=== PATIENT | male | born 1965 | race Two or more races ===

== ENCOUNTER 2017-04-03 19:19 | Emergency (ER) | payer BC ==
[~2017-04-03] VITALS: Ht 177.8 cm; Wt 104.3 kg
--- NOTE | 2017-04-03 19:26 | NUR ---
PT AMBULATORY TO ER BED 05 C/O THROAT DIOSCOMFORT AND SOB THAT STARTED TODAY. DENIES FEVER GOWNED AND PLACED ON MONITOR. 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 AWAITING MD FARRELL.
--- NOTE | 2017-04-03 19:36 | NUR ---
DR KWON AT BEDSIDE FOR EVAL.
[2017-04-03] MEDS ORDERED: ALBUTEROL FS 2.5 MG/3 ML VIAL.NEB ONE (19:39)
[2017-04-03] MEDS ORDERED: IPRATROPIUM NEB FS 0.5 MG/2.5 ML AMPUL.NEB ONE (19:39)
--- NOTE | 2017-04-03 19:46 | NUR ---
RT AT BEDSIDE FOR BREATHING TREATMENT.
[2017-04-03] MEDS ORDERED: predniSONE 20 MG TABLET ONE (19:47)
[2017-04-03] MEDS: predniSONE 20 MG TABLET PO ONE ×2 (19:50→19:58)
--- NOTE | 2017-04-03 19:58 | NUR ---
PT STATES TOOK 40MG PREDNISONE TODAY. ERMD AWARE. PREDNISONE 20MG GIVEN PO PER ERMD VERBAL ORDER.
[2017-04-03] MEDS ORDERED: IPRATROPIUM NEB FS 0.5 MG/2.5 ML AMPUL.NEB NEB ONE (20:00)
[2017-04-03] MEDS ORDERED: ALBUTEROL FS 2.5 MG/3 ML VIAL.NEB CONTNEB ONE (20:00)
[2017-04-03 21:42] VITALS: BP 142/80
--- NOTE | 2017-04-03 21:42 | NUR ---
Patient discharged to home in stable condition. Written and verbal after care instructions given. Patient verbalizes understanding of instruction.
== END 2017-04-03 21:43 | disposition home or self-care (01) ==
LOC: ER 19:21
DX: J40 Bronchitis, not specified as acute or chronic (principal)
CPT/HCPCS: 71010-TC; A4606; Z7610